=== PATIENT | female | born 1985 | race Two or more races ===

== ENCOUNTER 2020-06-29 04:48 | Inpatient (IN) ==
[2020-06-29 05:06] VITALS: BMI 40.4
[2020-06-29] MEDS ORDERED: D5LR 1L W PITOCIN 10 UNITS/L 10 UNITS/1,000 ML BAG IV PRN (06:00)
[2020-06-29] MEDS ORDERED: PITOCIN ONE (06:15)
[2020-06-29] MEDS ORDERED: D5 1/2 NS 1000 ML 1,000 ML IV ONE (06:15)
[2020-06-29] MEDS: D5 1/2 NS 1000 ML 1,000 ML IV SCH ×3 (06:15→23:59)
[2020-06-29] MEDS ORDERED: D5LR 1L W PITOCIN 10 UNITS/L 10 UNITS/1,000 ML BAG IV ONE (06:16)
[2020-06-29] MEDS ORDERED: BETADINE SOLN ONE (06:16)
[2020-06-29] MEDS ORDERED: D5 1/2 NS 1L W PITOCIN 20 UNITS/L 20 UNITS/1,000 ML BAG IV ONE (06:16)
[2020-06-29] MEDS ORDERED: LR 1000 ML IV 1,000 ML IV ONE (06:17)
[2020-06-29] MEDS ORDERED: REGLAN INJ 10 MG VIAL IVP PRN (06:31)
[2020-06-29] MEDS ORDERED: PITOCIN IVP ONE (06:31)
[2020-06-29] MEDS ORDERED: PHENERGAN INJ 25 MG IM PRN ×2 (06:31→08:25)
[2020-06-29] MEDS ORDERED: FENTANYL INJ 100 mcg ONE (06:33)
[2020-06-29] MEDS ORDERED: FENTANYL 2 mcg/mL-ROPIV 0.1%-NS EPIDURAL 200 ML EPI ONE (06:34)
[2020-06-29] MEDS ORDERED: STADOL INJ IVP PRN (06:34)
[2020-06-29] MEDS ORDERED: MORPHINE SULFATE INJ 2 MG INJ IVP PRN (06:40)
[2020-06-29 07:02] LABS: BLOOD UREA NITROGEN 9 mg/dL (7-18); CALCIUM 9.2 mg/dL (8.5-10.1); CARBON DIOXIDE 22.1 mmol/L (21-32); CHLORIDE 102 mmol/L (98-107); COR NA(FOR HYPERGLY) 138 mmol/L (136-145); CREATININE 0.77 mg/dL (0.55-1.02); SODIUM 137 mmol/L (136-145); eGFR NON BLACK RACES > 60 (>60)
[2020-06-29 07:03] LABS: BASOPHILS % (AUTO) 0.3 % (0.2-1.0); EOSINOPHILS # (AUTO) 0.1 x10^3/uL (0.0-0.2); HEMATOCRIT 40.4 % (36.0-47.0); HEMOGLOBIN 13.9 g/dL (12.0-16.0); LYMPHOCYTES # (AUTO) 2.6 X10^3/uL (1.3-2.9); LYMPHOCYTES % (AUTO) 18.8 % (21.0-51.0); MEAN CORPUSCULAR HEMOGLOBIN 31.4 pg (27.0-34.0); MEAN CORPUSCULAR HGB CONC 34.4 g/dL (33.0-35.0); MEAN PLATELET VOLUME 8.9 fL (7.4-11.0); MONOCYTES # (AUTO) 0.9 x10^3/uL (0.3-0.8); MONOCYTES % (AUTO) 6.4 % (0.0-13.0); NEUTROPHILS # (AUTO) 10.1 x10^3/uL (2.2-4.8); NEUTROPHILS % (AUTO) 73.5 % (42.0-75.0); PLATELET COUNT 253 X10^3/uL (150.0-450.0); RED BLOOD COUNT 4.44 X10^6/uL (3.5-5.4); RED CELL DISTRIBUTION WIDTH 14.1 % (11.6-16.5); WHITE BLOOD COUNT 13.8 X10^3/uL (3.6-10.0)
[2020-06-29] MEDS ORDERED: MOTRIN TAB 800 MG PO PRN (08:25)
[2020-06-29] MEDS: D5 1/2 NS 1000 ML 1,000 ML with PITOCIN 20 UNITS IV SCH ×4 (09:00→18:48)
[2020-06-29] MEDS ORDERED: DERMOPLAST PAIN RELIEF SPRAY TOP PRN (10:28)
[2020-06-29] MEDS ORDERED: AMBIEN PO PRN (10:28)
[2020-06-29] MEDS ORDERED: MOTRIN TAB 800 MG PO ONE (11:23)
[2020-06-29] MEDS ORDERED: REGLAN INJ 10 MG VIAL ONE (11:34)
[2020-06-29] MEDS: TORADOL 30 MG VIAL IVP SCH ×2 (14:15→21:04)
[2020-06-29] MEDS ORDERED: PEPCID TAB 20 MG ONE (16:01)
[2020-06-29] MEDS: PEPCID TAB 20 MG PO SCH ×2 (16:05→21:05)
[2020-06-29] MEDS: LAMICTAL TAB 100 MG PO SCH (21:05)
[2020-06-30] MEDS: TORADOL 30 MG VIAL IVP SCH ×3 (03:33→14:48)
[2020-06-30] MEDS: D5 1/2 NS 1000 ML 1,000 ML with PITOCIN 20 UNITS IV SCH ×6 (03:33→17:59)
[2020-06-30] MEDS: MOTRIN TAB 800 MG PO PRN ×2 (03:34→16:04)
[2020-06-30] MEDS: LAMICTAL TAB 100 MG PO SCH ×3 (06:32→20:55)
[2020-06-30 07:03] LABS: HEMATOCRIT 37.8 % (36.0-47.0); HEMOGLOBIN 12.7 g/dL (12.0-16.0)
[2020-06-30] MEDS: D5 1/2 NS 1000 ML 1,000 ML IV SCH ×2 (07:57→17:59)
[2020-06-30] MEDS: PEPCID TAB 20 MG PO SCH ×2 (08:37→20:55)
[2020-06-30] MEDS: PRENATAL PLUS PO SCH (08:38)
[2020-06-30] MEDS ORDERED: KLONOPIN TAB 1 MG PO PRN (10:00)
[2020-06-30] MEDS ORDERED: NICOTINE PATCH TD ONE (11:57)
[2020-06-30] MEDS: NICOTINE PATCH TD SCH (12:05)
[2020-07-01] MEDS: PRENATAL PLUS PO SCH (08:00)
[2020-07-01] MEDS: NICOTINE PATCH TD SCH (08:00)
[2020-07-01] MEDS: PEPCID TAB 20 MG PO SCH (08:00)
[2020-07-01] MEDS: LAMICTAL TAB 100 MG PO SCH (08:00)
[2020-07-01 08:39] VITALS: BP 145/82
== END 2020-07-01 11:05 | disposition home or self-care (01) | DRG 807 ==
LOC: ER 04:49 → LD 06:00 → MED/SURG 12:12
PROVIDERS: ADMIT Obstetrics & Gynecology; ATTEND Obstetrics & Gynecology
DX: O99.89 Other specified diseases and conditions complicating pregnancy, childbirth and the puerperium; Z3A.38 38 weeks gestation of pregnancy; O99.343 Other mental disorders complicating pregnancy, third trimester; Z37.0 Single live birth